=== PATIENT | male | born 1985 | race Native Hawaiian/Other Pacific Islander ===

== ENCOUNTER 2019-01-31 16:27 | Emergency (ER) | payer OTHER ==
[2019-01-31 16:35] VITALS: O2SAT 100
[2019-01-31] MEDS ORDERED: Lidocaine 1% (10 ml) Inj INFIL ONE (16:37)
[2019-01-31] MEDS ORDERED: Lidocaine Hydrochloride 1% 10 ML ONE (17:02)
[2019-01-31] MEDS ORDERED: Tdap Vaccine 0.5 ml Vial (10-64 yrs) IM ONE ×2 (17:05→18:46)
[2019-01-31] MEDS ORDERED: Povidone Iodine Oint 10% Foilpak UD ONE (17:20)
--- NOTE | 2019-01-31 17:25 | ED PDOC ---
HPI: Wound Care - HPI Time Seen by Provider: 01/31/19 16:33 Chief Complaint (Nursing): Abnormal Skin Integrity Chief Complaint (Provider): abnormal skin integrity History Per: Patient Exam Limitations: no limitations Onset/Duration Of Symptoms: Mins (30x) Current Symptoms Are (Timing): Still Present Severity: Moderate Additional Complaint(s): 33 year old male with no pertinent past medical history presents to the ED for an evaluation of a lower lip laceration he sustained 30x minutes prior to arrival. Earlier today patient was playing basketball when his lower lip was accidentally shouldered, sustaining a laceration. Patient denies loss of consciousness or headaches. Tetanus not up to date. PMD: None provided. Past Medical History Reviewed: Historical Data, Nursing Documentation, Vital Signs Vital Signs: Last Vital Signs Temp 97.4 F L 01/31/19 16:32 Pulse 103 H 01/31/19 16:32 Resp 16 01/31/19 16:32 BP 133/86 01/31/19 16:32 Pulse Ox 100 01/31/19 16:32 YOHAN Report Viewed: Yes - Medical History PMH: No Chronic Diseases - Surgical History Surgical History: No Surg Hx - Family History Family History: States: No Known Family Hx - Social History Current smoker - smoking cessation education provided: No Alcohol: Social Drugs: Denies - Immunization History Hx Tetanus Toxoid Vaccination: No Hx Influenza Vaccination: No Hx Pneumococcal Vaccination: No - Home Medications Home Medications: Ambulatory Orders Medication Instructions Recorded Amoxicillin/Clavulanate [Augmentin 1 tab PO BID #14 tab 01/31/19 500 MG-125 MG] - Allergies Allergies/Adverse Reactions: Allergies Allergy/AdvReac Type Severity Reaction Status Date / Time No Known Allergies Allergy Verified 01/31/19 16:35 Review of Systems ROS Statement: Except As Marked, All Systems Reviewed And Found Negative ENT: Positive for: Other (lower lip laceration) Neurological: Negative for: Headache Physical Exam - Reviewed Nursing Documentation Reviewed: Yes Vital Signs Reviewed: Yes - Physical Exam Appears: Positive for: Well, Non-toxic, No Acute Distress Head Exam: Positive for: NORMOCEPHALIC. Negative for: ATRAUMATIC (0.5 cm flap laceration to the lower lip. Laceration does not cross the vermilion border.) Skin: Positive for: Normal Color, Warm, Dry Eye Exam: Positive for: Normal appearance, EOMI, PERRL ENT: Positive for: Normal ENT Inspection, Other (denticion intact, no malocclusions) Neurological/Psych: Positive for: Awake, Alert, Oriented (3x) - ECG O2 Sat by Pulse Oximetry: 100 (RA) Pulse Ox Interpretation: Normal Procedure: Wound Repair - Time Performed Time Performed: 18:30 - Time Out Time Out: Side verified, Site verified, Patient ID confirmed, Sterile procedures obs. - Consent Obtained Consent obtained: Emergent consent implied - Performed by Performed by: Mid-level Provider (Jackie FELIX) - Indications Indication(s):: Laceration - Location Location:: Right (lower lip) Shape:: Curvilinear - Anesthetic Technique Local/Regional Anesthetic:: Lidocaine 1% - Irrigated Irrigated with ml of normal saline: 100 - Complexity Complexity:: Simple (one layer) - Wound repair method Sutures:: # (absorbable 6-0) - Patient tolerated procedure Patient Tolerated Procedure:: Well Medical Decision Making Medical Decision Makin:33 Initial impression: 33 year old male with a lower lip laceration Initial plan: * adacel 10-64 yrs 0.5 ml IM * lido 1% * reevaluation Scribe Attestation: Documented by Belinda Posadas, acting as a scribe for Elliot Mckinney. Provider Scribe Attestation: All medical record entries made by the Scribe were at my direction and personally dictated by me. I have reviewed the chart and agree that the record accurately reflects my personal performance of the history, physical exam, medical decision making, and the department course for this patient. I have also personally directed, reviewed, and agree with the discharge instructions and disposition. Disposition - Clinical Impression Clinical Impression: Head injury, Lip laceration - Patient ED Disposition Is Patient to be Admitted: No - Disposition Disposition: Routine/Home Disposition Time: 18:40 Condition: IMPROVED Additional Instructions: BRENDA BARKER, thank you for letting us take care of you today. Your provider was Radha Cortez MD and you were treated for LIP LACERATION. The emergency medical care you received today was directed at your acute symptoms. If you were prescribed any medication, please fill it and take as directed. It may take several days for your symptoms to resolve. Return to the Emergency Department if your symptoms worsen, do not improve, or if you have any other problems. Please contact your doctor or call one of the physicians/clinics you have been referred to that are listed on the Patient Visit Information form that is included in your discharge packet. Bring any paperwork you were given at discharge with you along with any medications you are taking to your follow up visit. Our treatment cannot replace ongoing medical care by a primary care provider outside of the emergency department. Thank you for allowing the [facility] team to be part of your care today. If you had an X-Ray or CT scan: A Radiologist will review the ED reading if any change in treatment is needed we will contact you. If you had a blood, urine, or wound culture: It will take several days for the results, if any change in treatment is needed we will contact you. If you had an STI test: It will take 48 hours for the results. Please call after 1 week if you have not heard back. Prescriptions: Amoxicillin/Clavulanate [Augmentin 500 MG-125 MG] 1 tab PO BID #14 tab Instructions: Laceration Repair With Stitches (DC), Minor Head Injury (DC) Forms: [employer] (French)
[2019-01-31 18:53] VITALS: BP 126/77; PULSE 86; RESP 18; TEMP 97.9
== END 2019-01-31 18:49 | disposition home or self-care (01) ==
LOC: H.ER 16:27
DX: S01.511A Laceration without foreign body of lip, initial encounter (principal); W22.8XXA Striking against or struck by other objects, initial encounter; Y93.67 Activity, basketball